=== PATIENT | male | born 1985 | race Caucasian/White ===

== ENCOUNTER → 2023-07-29 | Outpatient (CLI) | payer BC ==
[~2023-07-29] MED LIST: DOCU100 PO; Flomax0.4 MG PO; HYDMOR2 PO; METO50 PO; Macrodantin50 MG PO; PROM25 PO; Percocet 10-321 EACH PO; Percocet 5-3251 EACH PO; Zofran Odt4 MG SL
[2023-07-29 09:37] LABS: BASOPHILS ABSOLUTE AUTO 0.04 K/mm3 (0.00-0.23); BASOPHILS PERCENT AUTO 1 % (0-2); EOSINOPHILS ABSOLUTE AUTO 0.25 K/mm3 (0.00-0.68); EOSINOPHILS PERCENT AUTO 4 % (0-6); Hematocrit 44.6 % (37.0-53.0); Hemoglobin 15.8 g/dL (13.5-17.5); IMMATURE GRAN ABSOLUTE AUTO 0.01 K/mm3 (0.00-0.10); IMMATURE GRAN PERCENT AUTO 0 % (0-1); LYMPHOCYTES ABSOLUTE AUTO 2.25 K/mm3 (0.84-5.20); LYMPHOCYTES PERCENT AUTO 39 % (21-46); MONOCYTES ABSOLUTE AUTO 0.48 K/mm3 (0.16-1.47); MONOCYTES PERCENT AUTO 8 % (4-13); Mean Corpuscular HGB 30.6 pg (26.0-34.0); Mean Corpuscular HGB Conc 35.4 g/dL (31.5-36.5); Mean Corpuscular Volume 86 fL (80-100); Mean Platelet Volume 10.1 fL (9.1-12.4); NEUTROPHILS ABSOLUTE AUTO 2.82 K/mm3 (1.96-9.15); NEUTROPHILS PERCENT AUTO 48 % (41-73); Platelet Count 340 K/mm3 (150-400); RDW Coefficient Variation 13.4 % (11.7-14.2); Red Blood Cell Count 5.16 M/mm3 (4.30-5.90); White Blood Cell Count 5.85 K/mm3 (4.00-11.30)
[2023-07-29 09:48] LABS: Albumin, Blood 4.1 g/dL (3.4-5.0); Albumin/Globulin Ratio 0.9 (0.8-1.8); Bilirubin, Total 0.5 mg/dL (0.1-1.0); Bun/Creatinine Ratio 14.7 (12.0-20.0); Calcium, Blood 9.8 mg/dL (8.5-10.1); Creatinine, Blood 0.95 mg/dL (0.60-1.20); Globulin, Blood 4.8 g/dL (2.2-4.0); Potassium, Blood 4.1 mmol/L (3.5-5.5); Total Protein, Blood 8.9 g/dL (6.4-8.2)
== END | disposition home or self-care (01) ==
LOC: LAB 09:33 → LAB SHORT 09:33
PROVIDERS: Family Medicine
DX: R04.2 Hemoptysis (principal)
CPT/HCPCS: 80053; 85025

== ENCOUNTER 2024-09-20 15:29 | Emergency (ER) | payer BC ==
[~2024-09-20] VITALS: Ht 182.9 cm; Wt 113.4 kg
[2024-09-20] MEDS ORDERED: MELOXICAM5 MG (16:06)
[2024-09-20 16:12] LABS: BASOPHILS ABSOLUTE AUTO 0.04 K/mm3 (0.00-0.23); BASOPHILS PERCENT AUTO 0 % (0-2); EOSINOPHILS ABSOLUTE AUTO 0.08 K/mm3 (0.00-0.68); EOSINOPHILS PERCENT AUTO 1 % (0-6); Hematocrit 42.8 % (37.0-53.0); IMMATURE GRAN ABSOLUTE AUTO 0.04 K/mm3 (0.00-0.10); IMMATURE GRAN PERCENT AUTO 0 % (0-1); LYMPHOCYTES PERCENT AUTO 15 % (21-46); MONOCYTES ABSOLUTE AUTO 1.27 K/mm3 (0.16-1.47); MONOCYTES PERCENT AUTO 9 % (4-13); Mean Corpuscular HGB 29.9 pg (26.0-34.0); Mean Corpuscular Volume 85 fL (80-100); Mean Platelet Volume 10.1 fL (9.1-12.4); NEUTROPHILS ABSOLUTE AUTO 10.88 K/mm3 (1.96-9.15); NEUTROPHILS PERCENT AUTO 75 % (41-73); Platelet Count 361 K/mm3 (150-400); RDW Coefficient Variation 13.5 % (11.7-14.2); RDW Standard Deviation 42.2 fL (35.1-46.3); Red Blood Cell Count 5.02 M/mm3 (4.30-5.90); White Blood Cell Count 14.41 K/mm3 (4.00-11.30)
[2024-09-20 16:24] LABS: Albumin, Blood 3.5 g/dL (3.4-5.0); Albumin/Globulin Ratio 0.8 (0.8-1.8); Bilirubin, Total 0.6 mg/dL (0.1-1.0); Bun/Creatinine Ratio 17.1 (12.0-20.0); Calcium, Blood 8.8 mg/dL (8.5-10.1); Creatinine, Blood 0.82 mg/dL (0.60-1.20); Globulin, Blood 4.6 g/dL (2.2-4.0); Potassium, Blood 3.7 mmol/L (3.5-5.5); Total Protein, Blood 8.1 g/dL (6.4-8.2)
[2024-09-20 17:05] LABS: Source, Urine Clean Catch
[2024-09-20] MEDS ORDERED: NS 1,000 ML IV SCH (17:05)
[2024-09-20 17:09] LABS: Appearance, Urine Clear (Clear); Bilirubin, Urine Neg (Neg); Blood, Urine 1+ (Neg); Color, Urine Amber (P-Yellow); Glucose Qualitative, Urine Neg (Neg); Ketones, Urine Neg (Neg); Leukocyte Esterase, Urine 1+ (Neg); Nitrite, Urine Neg (Neg); Protein, Urine 1+ (Neg); Urobilinogen, Urine NORM (Normal)
[2024-09-20 17:16] LABS: Bacteria Many /hpf; Squamous Epithelial Cells Rare /hpf (Few)
[2024-09-20 18:30] VITALS: BP 174/92
[2024-09-20] MEDS ORDERED: MetroNIDAZOLE 500 MG Tab PO ONE (18:45)
[2024-09-20] MEDS ORDERED: RX Prepack 6 Tabs Oxycodone 5mg UD ONE (18:45)
[2024-09-20] MEDS ORDERED: Ciprofloxacin 500 MG Tab PO ONE (18:45)
[2024-09-20] MEDS ORDERED: METR500 PO (18:56)
[2024-09-20] MEDS ORDERED: CIPR500 PO (18:56)
== END 2024-09-20 19:00 | disposition home or self-care (01) ==
LOC: ER 15:29
PROVIDERS: Physician Assistant
DX: K52.9 Noninfective gastroenteritis and colitis, unspecified (principal); N39.0 Urinary tract infection, site not specified; Z88.0 Allergy status to penicillin; N20.0 Calculus of kidney; Z87.442 Personal history of urinary calculi
CPT/HCPCS: 74177; 80053; 81001; 82272; 83690; 85025; 86850; 86900; 86901; 87086; 93005; 93010; 99284-25; A9270; J7030; Q9967

== ENCOUNTER 2024-12-24 11:16 | Day surgery (SDC) | payer OTHER ==
[~2024-12-24] VITALS: Ht 188 cm; Wt 141.1 kg
[~2024-12-24 11:16] MED LIST changes: +CIPR500 PO; +Lactated Ringer's 1,000 ML IV ONE; +MELOXICAM5 MG; +METR500 PO
[2024-12-24 12:38] VITALS: BP 150/94
[2024-12-24] MEDS ORDERED: propofoL 50 ML IV ONE (12:44)
--- NOTE | 2024-12-24 13:00 | NUR ---
12/24/24 Halie Singh PT IS A DIFFICULT IV START, PT DELAYED TO GO INTO PROCEDURE. WILL TRANFER TO OR WHEN IV IS ACCESSED.
== END 2024-12-24 13:55 | disposition home or self-care (01) ==
LOC: ORSCSDS 11:16
DX: K62.5 Hemorrhage of anus and rectum (principal); Z53.9 Procedure and treatment not carried out, unspecified reason
CPT/HCPCS: J2704; J7120